=== PATIENT | female | born 1960 | race Caucasian/White ===

== ENCOUNTER 2016-05-10 07:04 | Emergency (ER) | payer OTHER ==
--- NOTE | ~2016-05-10 | ER ---
PATIENT'S NAME: KELSY GUTIERREZ [facility] AGE: 56 Y [address] ROOM: [place] [address] LOCATION: [facility] ADMIT DATE: 05/10/2016 ER/Outpatient Report DISCHARGE DATE: 05/10/2016 FAMILY PHYSICIAN: Geovanna Ruby MD ATTENDING PHYSICIAN: Anshul Rodriguez Time of Arrival: Time of Evaluation: 0740 hours. CHIEF COMPLAINT: Fall. HISTORY OF PRESENT ILLNESS: The patient is a 56-year-old female who presents to the emergency department today with chief complaint of a fall. She reports she was sleeping in her bed at about 6 o'clock this morning when she was having a vivid dream, fell and landed on the right side of her ribs. She reports it is a sharp pain. It is currently 8/10 in severity. It is worse with movement, worse with deep breath. The patient reports that she was on a platform bed. Denies any neck pain. No back pain. Denies any head injury. No loss of consciousness. PAST MEDICAL HISTORY: 1. Hypothyroidism. 2. Anxiety. PAST SURGICAL HISTORY: Cholecystectomy. SOCIAL HISTORY: The patient denies any tobacco use. Reports occasional wine use. Denies any illicit drug use. ALLERGIES: NO KNOWN DRUG ALLERGIES. MEDICATIONS: Please see list. PRIMARY CARE DOCTOR: Geovanna Ruby MD REVIEW OF SYSTEMS: All systems are reviewed by myself and are negative with the exception of those discussed in the HPI and past medical history. PATIENT'S NAME: KELSY GUTIERREZ [facility] AGE: 56 Y [address] ROOM: [place] [address] LOCATION: [facility] ADMIT DATE: 05/10/2016 ER/Outpatient Report DISCHARGE DATE: 05/10/2016 FAMILY PHYSICIAN: Geovanna Ruby MD ATTENDING PHYSICIAN: Anshul Rodriguez PHYSICAL EXAMINATION: VITAL SIGNS: Weight 87.2 kg, blood pressure 126/78, pulse 69, respiratory rate 26, temperature 98.3, and oxygen saturation 95% on room air. GENERAL: The patient is a 56-year-old female, who appears of stated age, in mild acute distress secondary to pain. HEENT: Head; normocephalic and atraumatic. Pupils are equal, round, and reactive to light and accommodating. Extraocular motions are intact. Mucous members are moist. NECK: Supple. There is no nuchal rigidity. CARDIOVASCULAR: Regular rate and rhythm. No murmurs, rubs, or gallops. LUNGS: Clear to auscultation bilaterally. No wheezes, rales, or rhonchi. ABDOMEN: Soft, nontender, and nondistended. No rebound, rigidity, or guarding. MUSCULOSKELETAL: The patient has tenderness to palpation in the right lateral ribs and right posterior ribs. SKIN: Warm and dry. No rashes or lesions noted. LABORATORY DATA AND IMAGING STUDIES: Laboratories and X-rays: X-rays of the right ribs and a 2-view chest x-ray were obtained. There was questionable area. CMP was unremarkable. A CT scan of the chest with IV contrast was obtained, does show rib fractures 3 through 4 which were nondisplaced, some chronic fractures. There was no evidence of pneumothorax. IMPRESSION: 1. Acute right rib fractures 3 and 4. 2. Initial visit. EMERGENCY DEPARTMENT COURSE: The patient was brought back to the examination room. Seen and evaluated by myself. An IV was established. Laboratory analysis and imaging were obtained as described above. The patient initially received a chest x-ray that was unequivocal. Results of the CT imaging were obtained to rule out a pneumothorax as the patient continues to have significant pain. She was given multiple doses of morphine 2 mg IV with improvement in patient's symptoms. I have discussed the results with the patient and her is at bedside. We have given the patient an incentive spirometer. I have discussed return to care instructions including worsening symptoms or any other concerns to return to the emergency department as soon as possible. I have recommended following up with Dr. Geovanna Ruby in 2 to 3 days for re-evaluation. The patient is agreeable without further questions at this time. DISPOSITION: The patient was discharged to home in good condition. PATIENT'S NAME: KELSY GUTIERREZ [facility] AGE: 56 Y [address] ROOM: [place], [place] [address] LOCATION: [facility] ADMIT DATE: 05/10/2016 ER/Outpatient Report DISCHARGE DATE: 05/10/2016 FAMILY PHYSICIAN: Geovanna Ruby MD ATTENDING PHYSICIAN: Anshul Rodriguez DO TORI DAWN/tess /[id number] d: 05/10/16 1747 t: 05/17/16 0551, OUTPATIENT REPORT
[2016-05-10 07:54] LABS: ALBUMIN 3.9 gm/dL (3.5-5.0); ANION GAP 12.8 (10.0-19.0); CALCIUM 9.1 mg/dL (8.5-10.5); POTASSIUM 3.8 mMol/L (3.7-5.1); TOTAL BILIRUBIN 0.4 mg/dL (0.0-1.5); TOTAL PROTEIN 8.2 g/dL (6.0-8.4)
== END 2016-05-10 09:15 | disposition disaster alternative care site (69) ==
LOC: GACC 07:04
PROVIDERS: Emergency Medicine
DX: S22.41XA Multiple fractures of ribs, right side, initial encounter for closed fracture (principal); F41.9 Anxiety disorder, unspecified; E03.9 Hypothyroidism, unspecified; Z90.49 Acquired absence of other specified parts of digestive tract; Z79.899 Other long term (current) drug therapy; W06.XXXA Fall from bed, initial encounter
CPT/HCPCS: J2270; Q9967